=== PATIENT | male | born 1980 ===

== ENCOUNTER 2017-09-03 04:42 | Emergency (ER) | payer OTHER ==
[2017-09-03 04:59] VITALS: BMI 30.6
[2017-09-03 05:02] VITALS: BP 139/75; PULSE 52; RESP 18; TEMP 98.7; O2SAT 100
[2017-09-03] MEDS ORDERED: Sodium Chloride 0.9% 1,000 ML IV STA (05:13)
--- NOTE | 2017-09-03 05:16 | ED PDOC ---
HPI: Abdomen Time Seen by Provider: 09/03/17 05:00 Chief Complaint (Nursing): Abdominal Pain Chief Complaint (Provider): abdominal pain History Per: Patient History/Exam Limitations: no limitations Onset/Duration Of Symptoms: Hrs (2) Current Symptoms Are (Timing): Still Present Location Of Pain/Discomfort: RUQ, RLQ Quality Of Discomfort: Cramping, "Pain" Associated Symptoms: Nausea, Vomiting Additional History Per: Patient Additional Complaint(s): 36 y/o male presents with acute onset right-sided abdominal pain x 2 hours. Associated nausea/vomiting. Denies fever, chest pain, shortness of breath, palpitations, changes in bowel movements, urinary symptoms. Patient notes constipation, had small bowel movement upon arrival to ED. Past Medical History Reviewed: Historical Data, Nursing Documentation, Vital Signs Vital Signs: Last Vital Signs Temp 98.7 F 09/03/17 04:59 Pulse 52 L 09/03/17 04:59 Resp 18 09/03/17 04:59 BP 139/75 09/03/17 04:59 Pulse Ox 100 09/03/17 05:16 - Medical History PMH: No Chronic Diseases - Surgical History Surgical History: No Surg Hx - Family History Family History: States: No Known Family Hx - Allergies Allergies/Adverse Reactions: Allergies Allergy/AdvReac Type Severity Reaction Status Date / Time seafood Allergy RASH Uncoded 09/03/17 04:59 Review of Systems ROS Statement: Except As Marked, All Systems Reviewed And Found Negative Gastrointestinal: Positive for: Nausea, Vomiting, Abdominal Pain Physical Exam - Reviewed Nursing Documentation Reviewed: Yes Vital Signs Reviewed: Yes - Physical Exam Appears: Positive for: Well, Non-toxic, Uncomfortable Head Exam: Positive for: ATRAUMATIC, NORMAL INSPECTION, NORMOCEPHALIC Skin: Positive for: Normal Color Eye Exam: Positive for: Normal appearance ENT: Positive for: Normal ENT Inspection Cardiovascular/Chest: Positive for: Regular Rate, Rhythm Respiratory: Positive for: Normal Breath Sounds Gastrointestinal/Abdominal: Positive for: Normal Exam, Bowel Sounds, Soft Back: Positive for: Normal Inspection Extremity: Positive for: Normal ROM Neurologic/Psych: Positive for: Alert, Oriented - Laboratory Results Result Diagrams: 09/03/17 05:19 09/03/17 05:19 - ECG O2 Sat by Pulse Oximetry: 100 Disposition - Clinical Impression Clinical Impression: Abdominal pain - Disposition Referrals: Sarahi Castro MD [Primary Care Provider] - Disposition Time: 06:03 Condition: STABLE Forms: [employer] (Czech) Patient Signed Over To: Freddy Vergara Handoff Comments: pending urine, re-eval, CT
[2017-09-03 05:34] LABS: BASO % 0.4 % (0.0-2.0); EOS # 0.6 K/uL (0.0-0.7); LYMPH # 2.6 K/uL (1.0-4.3); LYMPH % 22.8 % (20.0-40.0); MEAN CELL VOLUME 81.2 fl (80.0-94.0); MEAN CORPUSCULAR HEMOGLOBIN 25.9 pg (27.0-31.0); MEAN CORPUSCULAR HGB CONC 31.9 g/dL (33.0-37.0); MEAN PLATELET VOLUME 9.5 fl (7.2-11.7); MONO # 0.9 K/uL (0.0-0.8); MONO % 7.7 % (0.0-10.0); NEUT # 7.3 K/uL (1.8-7.0); NEUT % 64.1 % (50.0-75.0); RBC 5.01 Mil/uL (4.40-5.90); RED CELL DISTRIBUTION WIDTH 13.8 % (11.5-14.5); WHITE BLOOD COUNT 11.3 K/uL (4.8-10.8)
[2017-09-03 05:46] LABS: ALB/GLOB RATIO 1.2 (1.0-2.1); ALBUMIN 4.3 g/dL (3.5-5.0); ALT/SGPT 77 U/L (21-72); AST/SGOT 45 U/L (17-59); BLOOD UREA NITROGEN 21 mg/dl (9-20); CALCIUM 9.9 mg/dL (8.4-10.2); GFR AFRICAN-AMERICAN > 60; GFR NON-AFRICAN AMERICAN > 60; LIPASE 108 U/L (23-300)
[2017-09-03] MEDS ORDERED: Iohexol 240 (50 ml) PO ONE (06:19)
[2017-09-03 06:33] LABS: URINE BACTERIA RARE (<OCC); URINE BILIRUBIN NEGATIVE (NEGATIVE); URINE BLOOD NEGATIVE (NEGATIVE); URINE CLARITY CLEAR (Clear); URINE COLOR YELLOW (YELLOW); URINE GLUCOSE (UA) NEG (Normal); URINE LEUKOCYTE ESTERASE NEG Leu/uL (Negative); URINE NITRATE NEGATIVE (NEGATIVE); URINE PROTEIN NEGATIVE (NEGATIVE); URINE UROBILINOGEN 0.2-1.0 mg/dL (0.2-1.0)
--- NOTE | 2017-09-03 07:19 | ED PDOC ---
- Laboratory Results Result Diagrams: 09/03/17 05:19 09/03/17 05:19 - ECG O2 Sat by Pulse Oximetry: 100 (RA) Pulse Ox Interpretation: Normal Medical Decision Making Medical Decision Making: Time: 714 Patient signed out to me by Dr. Vergara pending CT studies and reevaluation. Scribe Attestation: Documented by Hanna Lock, acting as a scribe for Mumtaz Ang MD. Provider Scribe Attestation: All medical record entries made by the Scribe were at my direction and personally dictated by me. I have reviewed the chart and agree that the record accurately reflects my personal performance of the history, physical exam, medical decision making, and the department course for this patient. I have also personally directed, reviewed, and agree with the discharge instructions and disposition. Disposition - Clinical Impression Clinical Impression: Abdominal pain, Kidney stone - POA Present On Arrival: None - Disposition Referrals: Sarahi Castro MD [Primary Care Provider] - Travis Hanks Jr., MD [Staff Provider] - Disposition: Routine/Home Disposition Time: 10:00 Condition: FAIR Prescriptions: Ciprofloxacin HCl [Cipro] 500 mg PO BID #20 tab Tamsulosin [Flomax] 0.4 mg PO DAILY #5 cap traMADol [Ultram] 50 mg PO Q8 #10 tab Instructions: Kidney Stones (ED) Forms: [facility] (Angolan)
[2017-09-03] MEDS ORDERED: Sodium Chloride 0.9% 50 ML IV ONE (08:23)
[2017-09-03] MEDS ORDERED: Iohexol 300 100 ML IJ ONE (08:23)
--- NOTE | 2017-09-03 09:43 | CT ---
PROCEDURE: CT Abdomen and Pelvis with contrast HISTORY: abd pain, vomiting COMPARISON: None. TECHNIQUE: Helical CT of the abdomen and pelvis was performed following oral contrast administration. Intravenous contrast was not administered as per referring physician request. Contrast dose: None Radiation dose: Total exam DLP = 1125.77 mGy-cm. This CT exam was performed using one or more of the following dose reduction techniques: Automated exposure control, adjustment of the mA and/or kV according to patient size, and/or use of iterative reconstruction technique. FINDINGS: LOWER THORAX: Limited linear atelectasis is seen at the right base. LIVER: Hepatic steatosis is appreciated with liver otherwise unremarkable. GALLBLADDER AND BILE DUCTS: Unremarkable. PANCREAS: Unremarkable. No gross lesion or ductal dilatation. SPLEEN: Unremarkable. ADRENALS: Unremarkable. No mass. KIDNEYS AND URETERS: A delayed right nephrogram is appreciate with borderline right hydronephrosis and hydroureter on the basis of a 2 mm calculus obstructing distal right ureter either within the right UV junction or possibly in the right urinary bladder lumen. No intrarenal calculi identified bilaterally. No left hydronephrosis. No significant perinephric reaction bilaterally. VASCULATURE: Unremarkable. No aortic aneurysm. BOWEL: Unremarkable. No obstruction. No gross mural thickening. APPENDIX: Normal appendix. PERITONEUM: Unremarkable. No free fluid. No free air. LYMPH NODES: Unremarkable. No enlarged lymph nodes. BLADDER: Unremarkable. REPRODUCTIVE: Unremarkable. BONES: No acute fracture. OTHER FINDINGS: None. IMPRESSION: A delayed right nephrogram is appreciated with limited right hydroureteronephrosis limits of tubular calculus possibly was expelled into the urinary bladder or at the right UV junction at this time. Hepatic steatosis.
== END 2017-09-03 10:33 | disposition home or self-care (01) ==
LOC: H.ER 04:42
DX: N20.0 Calculus of kidney (principal)
CPT/HCPCS: 74177; 80053; 81003; 83690; 85025; 87086; 96361; 96374; 96375; 99283; J1885; J2405; J7040; Q9966; Q9967